=== PATIENT | female | born 1990 | race Caucasian/White ===

== ENCOUNTER 2016-12-09 12:42 | Emergency (ER) | payer OTHER ==
[2016-12-09 12:57] VITALS: BP 138/98; PULSE 83; RESP 16; TEMP 97.9; O2SAT 98
--- NOTE | 2016-12-09 13:30 | UCPHY ---
H & P Patient Type: Established Chief Complaint Nursing Narrative: sacral back pain radiating down L hip/groin ( sciatic per pt). has had herniated disks in past and pt feels the same pain as this. Source: Patient Exam Limitations: No limitations - Personal History LMP (Females 10-55): 22-28 Days Ago - Medical/Surgical History Hx Asthma: No Hx Chronic Respiratory Disease: No Hx Diabetes: No Hx Cardiac Disease: No Hx Renal Disease: No Hx Cirrhosis: No Hx Alcoholism: No Hx HIV/AIDS: No Hx Splenectomy or Spleen Trauma: No Other PMH: herniated disks L2,L3, L4 with steroid shots. tubular adenoma removed from L breast. nose surgery 2011. - Family History Significant Family History: No pertinent family hx - Social History Smoking Status: Never smoked Time Seen by Provider: 12/09/16 12:52 HPI/ROS: CHIEF COMPLAINT: low back pain HISTORY OF PRESENT ILLNESS: 26-year-old female presents to Urgent Care complaining left-sided low back pain that started this morning after bending over. Patient reports her pain radiates down her left leg. It feels similar to previous herniated discs and sciatica that she has had. Patient denies loss of control of her bowel or bladder, no saddle anesthesias, no fevers, no recent trauma. She denies weakness in her leg. Patient states ibuprofen is not helping her pain. REVIEW OF SYSTEMS: A comprehensive 10 point review of systems is otherwise negative aside from elements mentioned in the history of present illness. (Carlita Bello) - Physical Exam Exam: Physical Exam Gen: Alert and Oriented, NAD HEENT: PERRL, moist mucous membranes NECK: no meningismus CV: regular rate and regular rhythm PULM: CTAB, no wheezes ABDOMEN: soft, non tender to palpation, BS present BACK: Bilateral lumbar paraspinal tenderness to palpation NEURO: Neurologically grossly intact, 2/4 deep tendon reflexes bilateral patellar and Achilles, negative straight leg raise bilaterally EXTREMITIES: normal appearing SKIN: no rash or break in skin on exposed skin PSYCH: answers questions appropriately. (Carlita Bello) Constitutional: Initial Vital Signs Temperature (C) 36.6 C 12/09/16 12:54 Heart Rate 83 12/09/16 12:54 Respiratory Rate 16 12/09/16 12:54 Blood Pressure 138/98 H 12/09/16 12:54 O2 Sat (%) 98 12/09/16 12:54 O2 Delivery Mode Room Air Allergies/Adverse Reactions: No Known Allergies Allergy (Verified 12/09/16 12:54) Home Medications: Medication Instructions Recorded Ritalin 10mg (RX) 11/09/15 Hydrocodone/APAP 5/325 [Branson 1 tab PO Q4H PRN #7 tab 12/09/16 5/325] Methocarbamol [Robaxin-750] 750 - 1,500 mg PO QID PRN #20 12/09/16 tablet Medical Decision Making Differential Diagnosis: The differential diagnosis for the patient's back pain included but was not limited to musculo-skeletal pain, epidural abscess, herniated disk, spinal fracture, cauda equina and intra-abdominal causes including urinary system. ( Carlita Bello) Other Provider: The patient was evaluated and managed by the nurse practitioner, Carlita Bello. My co-signature indicates that I have reviewed this chart and I agree with the findings and plan of care as documented. I am the secondary supervising physician. (Ailin Shen) Departure - Departure Disposition: Home, Routine, Self-Care Clinical Impression: Lumbar radiculitis Condition: Good Instructions: Methocarbamol (By mouth), Lumbar Radiculopathy (ED), Lower Back Exercises (ED) Additional Instructions: Take 600 mg of ibuprofen 3 times per day with food, takes Robaxin every 6-8 hours as needed for muscle spasms. Ice or heat whichever feels better, gentle range of motion exercises, core strengthening exercises daily. Return to the emergency department for any loss of control of your bowel or bladder, numbness to your groin, fevers. Referrals: Yen Gomez MD [Primary Care Provider] - As per Instructions Prescriptions: Hydrocodone/APAP 5/325 [Branson 5/325] 1 tab PO Q4H PRN #7 tab PRN Reason: Pain, Moderate Methocarbamol [Robaxin-750] 750 - 1,500 mg PO QID PRN #20 tablet PRN Reason: Spasms - PQRS PQRS Measurement: na (Carlita Bello)
== END 2016-12-09 13:33 | disposition home or self-care (01) ==
LOC: CED 12:42
DX: M54.16 Radiculopathy, lumbar region (principal)
CPT/HCPCS: 99214-PO; G0463-PO